=== PATIENT | female | born 1940 | race Caucasian/White ===

== ENCOUNTER 2018-03-09 13:28 | Inpatient (IN) ==
[2018-03-09] MEDS ORDERED: ONDANSETRON 4 MG/2 ML VIAL IV PRN (13:33)
[2018-03-09] MEDS ORDERED: ACETAMINOPHEN 325 MG TABLET PO PRN (13:33)
[2018-03-09] MEDS ORDERED: DILTIAZEM INJ 100 MG in SODIUM CHLORIDE 0.9% 100 ML IV SCH (14:00)
[2018-03-09] MEDS ORDERED: MAGNESIUM SULF RIDER 4 GM in PREMIX 1 EACH IV PRN (15:26)
[2018-03-09] MEDS ORDERED: POTASSIUM CHLORIDE 20 MEQ TABLET PO PRN (15:26)
[2018-03-09] MEDS ORDERED: MAGNESIUM SULF RIDER 2 GM in PREMIX 1 EACH IV PRN (15:26)
[2018-03-09] MEDS ORDERED: METOPROLOL TARTRATE 25 MG TABLET PO SCH (15:30)
[2018-03-09 15:37] LABS: Basophils # 0.1 10*3/uL (0.0-0.2); Basophils % 1.1 % (0.0-0.8); Eosinophils # 0.2 10*3/uL (0.0-0.87); Eosinophils % 4.7 % (0.00-10.9); Hematocrit 38.8 VOL% (35.7-47.0); Hemoglobin 12.6 GM/DL (12.0-16.0); Immature Granulocytes % 0.2 %; Immature Granulocytes Absolute 0.01 #; Lymphocytes # 0.9 10*3/uL (1.4-4.0); Lymphocytes % 19.9 % (21.3-54.2); Mean Corpuscular HGB Conc 32.5 GM/DL (32-36); Mean Corpuscular Hemoglobin 31 PG (27-34); Mean Corpuscular Volume 95.8 FL (87-102); Mean Platelet Volume 10.1 FL (9.6-12.0); Monocytes # 0.4 10*3/uL (0.11-0.8); Monocytes % 8.4 % (1.7-12.7); Neutrophils # 3.1 10*3/uL (1.4-7.4); Neutrophils % 65.7 % (38.7-73.9); Platelet Count 151 T/CUMM (130-400); Red Blood Count 4.05 MC/CUMM (3.8-5.5); White Blood Count 4.7 T/CUMM (4-12)
[2018-03-09 15:46] LABS: PT Patient Result 10.4 SECS; Partial Thromboplastin Time 33.2 SECS (0-40)
[2018-03-09] MEDS ORDERED: DILTIAZEM 60 MG TABLET PO SCH (15:55)
[2018-03-09] MEDS: APIXABAN 5 MG TABLET PO SCH ×2 (16:10→21:16)
[2018-03-09] MEDS: DILTIAZEM INJ 100 MG in SODIUM CHLORIDE 0.9% 100 ML IV SCH ×2 (16:10→17:07)
[2018-03-09 16:21] LABS: Albumin 4.2 G/DL (3.4-5.0); Bilirubin,Total 0.7 MG/DL (0.2-1.0); Calcium 9.2 MG/DL (8.5-10.1); Osmolality,Calculated 275.7 MOS/KG (273-304); Potassium 4.1 MMOL/L (3.5-5.1); Total Protein 7.5 G/DL (6.4-8.3)
[2018-03-09 16:25] LABS: Troponin I Only < 0.015 NG/ML (0.00-0.045)
[2018-03-09 16:26] LABS: Thyroid Stimulating Hormone 4.35 uIU/ml (0.358-3.74)
[2018-03-09] MEDS: DILTIAZEM 60 MG TABLET PO SCH (17:10)
[2018-03-09 19:28] LABS: Troponin I Only < 0.015 NG/ML (0.00-0.045)
[2018-03-09] MEDS: ASCORBIC ACID 500 MG TABLET PO SCH (21:15)
[2018-03-09] MEDS: DOCUSATE SODIUM 100 MG CAPSULE PO SCH (21:16)
[2018-03-09 21:57] LABS: Troponin I Only < 0.015 NG/ML (0.00-0.045)
[2018-03-10] MEDS: DILTIAZEM 60 MG TABLET PO SCH ×2 (00:39→06:24)
[2018-03-10 04:55] LABS: Basophils % 0.9 % (0.0-0.8); Eosinophils # 0.2 10*3/uL (0.0-0.87); Eosinophils % 5.2 % (0.00-10.9); Hematocrit 37.4 VOL% (35.7-47.0); Hemoglobin 12.1 GM/DL (12.0-16.0); Immature Granulocytes % 0.5 %; Immature Granulocytes Absolute 0.02 #; Lymphocytes # 1.2 10*3/uL (1.4-4.0); Lymphocytes % 28.1 % (21.3-54.2); Mean Corpuscular HGB Conc 32.4 GM/DL (32-36); Mean Corpuscular Hemoglobin 31 PG (27-34); Mean Corpuscular Volume 96.6 FL (87-102); Mean Platelet Volume 10.7 FL (9.6-12.0); Monocytes # 0.5 10*3/uL (0.11-0.8); Monocytes % 10.9 % (1.7-12.7); Neutrophils # 2.4 10*3/uL (1.4-7.4); Neutrophils % 54.4 % (38.7-73.9); Platelet Count 145 T/CUMM (130-400); Red Blood Count 3.87 MC/CUMM (3.8-5.5); Red Cell Distribution Width 13.3 % (9.3-17.3); White Blood Count 4.4 T/CUMM (4-12)
[2018-03-10 05:23] LABS: Osmolality,Calculated 278.5 MOS/KG (273-304); Potassium 4.3 MMOL/L (3.5-5.1)
[2018-03-10 05:24] LABS: Risk Ratio 2.7; VLDL CHOLESTEROL 19.4 MG/DL
[2018-03-10 05:25] LABS: Blood Urea Nitrogen 18 MG/DL (7-18); Calcium 8.9 MG/DL (8.5-10.1); Glucose 98 MG/DL (74-106); Osmolality,Calculated 276.7 MOS/KG (273-304); Potassium 4.1 MMOL/L (3.5-5.1); Sodium 138 MMOL/L (136-145); Troponin I Only < 0.015 NG/ML (0.00-0.045)
[2018-03-10] MEDS: DOCUSATE SODIUM 100 MG CAPSULE PO SCH (08:14)
[2018-03-10] MEDS: ASCORBIC ACID 500 MG TABLET PO SCH (08:14)
[2018-03-10] MEDS: APIXABAN 5 MG TABLET PO SCH (08:15)
[2018-03-10] MEDS ORDERED: MULTIVITAMIN (CENTRUM) TABLET PO SCH (09:00)
[2018-03-10] MEDS ORDERED: LEVOTHYROXINE 75 MCG TABLET PO SCH (09:00)
[2018-03-10] MEDS ORDERED: ALENDRONATE SODIUM 70 MG PO SCH (09:00)
[2018-03-10] MEDS ORDERED: DILTIAZEM CD 240 MG CAPSULE PO SCH (09:00)
[2018-03-10] MEDS ORDERED: CALCIUM (CARBONATE) 500 MG TABLET PO SCH (09:00)
[2018-03-10] MEDS ORDERED: FAMOTIDINE 20 MG TABLET PO SCH (09:00)
[2018-03-10] MEDS ORDERED: PANTOPRAZOLE 40 MG TABLET PO SCH (09:00)
[2018-03-10] MEDS ORDERED: PANTOPRAZOLE 20 MG TABLET PO SCH (09:00)
[2018-03-10] MEDS ORDERED: URSODIOL 300 MG CAPSULE PO SCH (09:00)
[2018-03-10 10:45] VITALS: BP 139/76
== END 2018-03-10 10:40 | disposition home or self-care (01) | DRG 310 ==
LOC: N.CC 14:40
PROVIDERS: ADMIT Internal Medicine; ATTEND Internal Medicine Clinical Cardiac Electrophysiology